=== PATIENT | male | born 1985 | race Caucasian/White ===

== ENCOUNTER 2016-12-10 17:17 | Emergency (ER) | payer BC, MEDICAID ==
[~2016-12-10] VITALS: Ht 175.3 cm; Wt 74.8 kg
[2016-12-10 17:36] VITALS: BP_SYST 115
[2016-12-10] MEDS ORDERED: KETOROLAC TROMETHAMINE 60 MG/2 ML VIAL IM ONE (18:00)
[2016-12-10] MEDS ORDERED: MAG HYDROX/AL HYDROX/SIMETH 30 ML, BELLADONNA ALKALOIDS/PHENOBARB 10 ML, LIDOCAINE VISC... PO ONE ×3 (18:00)
[2016-12-10 18:16] LABS: BILIRUBIN,URINE NEGATIVE (NEGATIVE); BLOOD, URINE NEGATIVE (NEGATIVE); CLARITY/URINE CLEAR (CLEAR); COLOR,URINE YELLOW (YELLOW); GLUCOSE,URINE NEGATIVE (NEGATIVE); KETONES,URINE NEGATIVE (NEGATIVE); LEUKOCYTE ESTERASE ,URINE NEGATIVE (NEGATIVE); NITRITE, URINE NEGATIVE (NEGATIVE); PROTEIN URINE NEGATIVE (NEGATIVE); UROBILINOGEN,URINE 0.2 (0.2-1.0)
[2016-12-10 19:17] VITALS: BP_SYST 115
== END 2016-12-10 19:17 | disposition home or self-care (01) ==
LOC: SED 17:17
DX: R10.31 Right lower quadrant pain (principal)
CPT/HCPCS: 74020; 81003; 96372; 99285; J1885; J2001